=== PATIENT | male | born 1940 | race Two or more races ===

== ENCOUNTER 2017-03-16 18:51 | Emergency (ER) | payer MEDICARE, OTHER ==
[~2017-03-16] VITALS: Ht 167.6 cm; Wt 83.9 kg
[2017-03-16 18:51] VITALS: BP 122/80
--- NOTE | 2017-03-16 19:03 | Emergency Room Report ---
History of Present Illness General Chief Complaint: Abdominal Pain Source: Patient Present Illness HPI Is a 76-year-old male with a history of diabetes and previous abdominal surgery. He presents with chief complaint of abdominal pain with nausea and diarrhea. Onset today. Pain is mostly epigastric but diffuse in nature also. No fever or chills. No chest pain. Onset this afternoon. Pain is 7/10. Allergies: Coded Allergies: No Known Allergies (Unverified , 03/16/17) Patient History Past Medical History: see triage record, old chart reviewed, DM Past Surgical History: other Pertinent Family History: none Social History: Denies: smoking Immunizations: other Reviewed Nursing Documentation: PMH: Agreed, PSxH: Agreed Nursing Documentation-PMH Past Medical History: No History, Except For Hx Diabetes: Yes - Pt states, "supposedly diabetic." Review of Systems Eye: Denies: eye pain, blurred vision ENT: Denies: ear pain, nose congestion, throat swelling Respiratory: Denies: cough, shortness of breath Cardiovascular: Denies: chest pain, palpitations Gastrointestinal: Reports: abdominal pain, diarrhea, nausea, Denies: vomiting Musculoskeletal: Denies: back pain, joint pain Skin: Denies: rash Neurological: Denies: headache, numbness Endocrine: Denies: increased thirst, increased urine Hematologic/Lymphatic: Denies: easy bruising All Other Systems: negative except mentioned in HPI Physical Exam Vital Signs Date Time Temp Pulse Resp B/P (MAP) Pulse Ox O2 Delivery O2 Flow Rate FiO2 03/16/17 18:48 98.1 87 18 110/60 97 Room Air vitals normal Sp02 EP Interpretation: reviewed, normal General Appearance: well appearing, no apparent distress, alert Head: normocephalic, atraumatic Eyes: bilateral eye PERRL, bilateral eye EOMI ENT: hearing grossly normal, normal pharynx Neck: full range of motion, supple, no meningismus Respiratory: chest non-tender, lungs clear, normal breath sounds Cardiovascular #1: regular rate, rhythm, no murmur Gastrointestinal: no mass, no organomegaly, no bruit, non-distended, tenderness - mild, other - Hyperactive bowel sounds Musculoskeletal: back normal, gait/station normal, normal range of motion Psychiatric: mood/affect normal Skin: warm/dry Medical Decision Making Diagnostic Impression: Primary Impression: Abdominal pain of unknown etiology Additional Impression: UTI (urinary tract infection) Qualified Codes: N30.00 - Acute cystitis without hematuria ER Course Patient presents with abdominal pain. CT scan unremarkable. Labs unremarkable. Better now. We'll discharge home. No evidence of obstruction or acute abdomen. CT/MRI/US Diagnostic Results CT/MRI/US Diagnostic Results : Imaging Test Ordered: CT abdomen and pelvis Impression enlarged prostate per radiologist Last Vital Signs Date Time Temp Pulse Resp B/P (MAP) Pulse Ox O2 Delivery O2 Flow Rate FiO2 03/16/17 18:51 98.1 86 17 122/80 96 Room Air Status: improved Disposition: HOME, SELF-CARE Condition: Stable Scripts Cephalexin* (KEFLEX*) 500 Mg Capsule 500 MG ORAL TID, #21 CAP 0 Refills Prov: LUANN WILDE M.D. 03/16/17 Additional Instructions: Followup with your DrBaldo in 2-3 days. Return if worse. LUANN WILDE M.D. Mar 16, 2017 19:03
[2017-03-16] MEDS ORDERED: ULORIC40 MG ORAL (19:27)
[2017-03-16] MEDS ORDERED: LOSARTAN-HCTZ1 EAC1 ORAL (19:27)
[2017-03-16] MEDS ORDERED: AMLODIPINE BESYL5 MG ORAL (19:27)
[2017-03-16] MEDS ORDERED: SIMVASTATIN20 MG ORAL (19:27)
[2017-03-16 19:40] LABS: APPEARANCE,URINE SLIGHTLY CLOUDY; KETONES,URINE 1+ (NEGATIVE); LEUKOCYTE ESTERASE ,URINE 2+ (NEGATIVE); NITRITE,URINE NEGATIVE (NEGATIVE); PH,URINE 5 (4.5-8.0); PROTEIN,URINE 3+ (NEGATIVE); UROBILINOGEN,URINE 1 MG/DL (0.0-1.0)
[2017-03-16 19:42] LABS: ANION GAP 15 mmol/L (5-15); CALCIUM 9.8 MG/DL (8.5-10.1); CARBON DIOXIDE 21 MMOL/L (21-32); CHLORIDE 103 MMOL/L (98-107); CREATININE 1.9 MG/DL (0.55-1.30); POTASSIUM 4.4 MMOL/L (3.5-5.1); SODIUM 139 MMOL/L (136-145)
[2017-03-16 19:46] LABS: ALANINE AMINOTRANSFERASE 37 U/L (12-78); ASPARTATE AMINO TRANSFERASE 32 U/L (15-37); LIPASE 321 U/L (73-393); TOTAL PROTEIN 8.6 G/DL (6.4-8.2)
[2017-03-16 20:07] LABS: MEAN CORPUSCULAR HEMOGLOBIN 29.3 PG (27.0-31.0); MEAN CORPUSCULAR VOLUME 92 FL (80-99); MEAN PLATELET VOLUME 8.6 FL (6.5-10.1); PLATELET COUNT 206 K/UL (150-450); RED BLOOD COUNT 4.68 M/UL (4.70-6.10); RED CELL DISTRIBUTION WIDTH 11.7 % (11.6-14.8); WHITE BLOOD COUNT 14.2 K/UL (4.8-10.8)
[2017-03-16 20:08] LABS: LYMPHOCYTES % (AUTO) 4.2 % (20.0-45.0); NEUTROPHILS % (AUTO) 87.5 % (45.0-75.0)
[2017-03-16 20:09] LABS: BASOPHILS % (AUTO) 0.7 % (0.0-2.0); EOSINOPHILS % (AUTO) 0.9 % (0.0-3.0); MONOCYTES % (AUTO) 6.3 % (1.0-10.0)
[2017-03-16 20:13] LABS: ICTOTEST NEGATIVE
[2017-03-16 20:16] LABS: BACTERIA,URINE FEW /HPF; SQUAMOUS EPITHELIAL CELL,UR FEW /LPF (NONE/OCC)
[2017-03-16] MEDS ORDERED: cefTRIAXone 1 GM in NS 55 ML IVPB ONE (20:30)
[2017-03-16 20:49] VITALS: BP 127/61
[2017-03-16] MEDS ORDERED: KEFLEX500 MG ORAL (21:06)
[2017-03-16 21:13] VITALS: BP 127/61
--- NOTE | 2017-03-17 10:38 | Diagnostic Imaging Report ---
Indication: Abdominal pain Technique: Spiral acquisitions obtained through the abdomen and pelvis. No oral contrast utilized, per emergency room physician request No IV contrast utilized, per referring physician request.. Multiplanar reconstructions were generated. Total dose length product 713 mGycm. CTDIvol(s) 14 mGy. Dose reduction achieved using automated exposure control Comparison: None Findings: Normal appendix. No evidence of diverticulosis or diverticulitis. Small bowel loops are diffusely fluid-filled, upper limits of normal in caliber. Considerable fluid is also seen within the colon. No free or loculated intraperitoneal air or fluid. Distal esophagus, stomach, duodenum are unremarkable. Area of increased attenuation in the left inguinal region suggests prior surgery, likely hernia repair. Lack of IV contrast limits assessment of the solid organs. There is pneumobilia. Extrahepatic bile ducts are nondilated. The gallbladder is nondistended. No focal hepatic abnormality. The pancreas, spleen, adrenals are unremarkable. There are bilateral renal cysts. There is a 2 mm calculus in the lower pole of the left renal collecting system. No hydronephrosis, hydroureter, or ureteral calculi. The prostate is enlarged, measuring 5.5 cm transverse by 4.1 cm AP, contains calcifications and indents the bladder floor. The bladder demonstrates equivocal mild wall thickening, although this may be an artifact of under distention. Included lung bases demonstrate a subpleural 7 mm nodule on the left. There is also compressive atelectatic change. The heart is enlarged. The bones demonstrate degenerative spondylosis changes. A degenerative subchondral cyst is seen in the upper posterior acetabulum on the right. Impression: No acute abnormality Enlarged prostate. Mild bladder wall thickening, could be an artifact of under distention or could indicate cystitis or chronic bladder outlet obstruction Pneumobilia, likely indicating prior endobiliary intervention. Correlate with clinical history 7 mm left lung base nodule. Recommend followup CT in 6-12 months Nonobstructive 2 mm left lower pole renal calculus Considerable small bowel and colonic fluid, could indicate enteritis or diarrhea Suspect prior left inguinal surgery. Correlate with surgical history Bilateral renal cysts Cardiomegaly Degenerative spondylosis degenerative changes of left hip This agrees with the preliminary interpretation provided overnight by [employer] teleradiology service. The CT scanner at [facility] is accredited by the [employer] and the scans are performed using protocols designed to limit radiation exposure to as low as reasonably achievable to attain images of sufficient resolution adequate for diagnostic evaluation.
== END 2017-03-16 21:13 | disposition home or self-care (01) ==
LOC: EDBD 18:51 → EMR 19:00
DX: R10.9 Unspecified abdominal pain (principal); N39.0 Urinary tract infection, site not specified; E11.9 Type 2 diabetes mellitus without complications; N28.1 Cyst of kidney, acquired; N20.0 Calculus of kidney; R91.1 Solitary pulmonary nodule
CPT/HCPCS: 36415; 74176; 80053; 81003; 83690; 85025; 96374; 96375; 99284; J0696; J2405